=== PATIENT | female | born 1950 | race Caucasian/White ===

== ENCOUNTER 2016-05-22 11:25 | Day surgery (SDC) | payer MEDICARE, OTHER ==
[~2016-05-22 11:25] MED LIST: 0.9% Sodium Chloride 1,000 ML IV PRN; ATEN25TA7 PO; BENA40TA60 PO; GABA-502 PO; IBUP-1827 PO; LEVO112T4 PO; LEVO125T6 PO; NIFE60TA62 PO; OMEP20TA86 PO; PROP10TA8 PO; Sodium Chloride LOK Flush 10 mL Syringe IV PRN; fentaNYL-PF 50 mCg/mL 2 mL Inj IVPUSH PRN
[2016-05-22 12:24] VITALS: BP 157/94; PULSE 89; RESP 16; O2SAT 99
--- NOTE | 2016-05-22 14:00 | PCM.ENDEGD ---
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 Scope introduced esophagus. Esophagus showed normal shiny whitish mucosa consistent with squamous cell component. Z line was intact at 36 cm from the incisors. Right above it, there was a Schatzki's ring. Lumen site was about 12 mm. On the Schatzki's ring, there was islands of salmon-colored mucosa. Biopsies are obtained four quadrant at the sites of the salmon-colored mucosa and the Z line. So we obtained total of 6 biopsies. 4 at the site of Tanner's and 2 at the Z line. The length of the Tanner was more no more than 2 cm. Because we took biopsies , we did not dilate. Scope further advanced to the stomach. Stomach showed normal shiny mucosa with normal appearing rugae folds without any ulcer mass erosion. Cardia fundus body antrum pylorus were all visualized. Retroflexion was done. Stomach was easily inflated and deflatable using air. Scope further events to the distal duodenum. Duodenum revealed normal villous structures with normal appearing folds without any mass ulcer erosion. Impression Schatzki's ring lumen size about 12-13 mm Tanner's esophagus on the Schatzki's ring biopsy obtained from and 2 biopsies obtained at the junction. 4 cm hiatus hernia Recommendation Await biopsy Continue PPI Follow up in GI clinic to talk about esophageal dilation Presedation Assessment Risks and Benefits Informed consent was obtained from the patient after all risks and benefits including but not limited to drug reaction, infection, pain, bleeding, perforation, as well as alternatives were discussed. Patient monitoring Continuous pulse oximetry, cardiac monitoring, blood pressure monitoring, IV access, and oxygen at 2L per nasal cannula. Periprocedural Fentanyl: Fentanyl 125mcg Incrementally Midazolam: Midazolam 7mg Incrementally Complications There were no periprocedural complications identified. Post Procedure Plan Post Procedure Recommendations 1. Restrict activities today. 2. Resume normal activities in the morning. 3. Resume medications. 4. GERD behavioral modification: - Avoid fatty, acidic, spicy, large meals - Do not lie down after meals - Do not eat or drink anything for at least 2 1/2 hours before going to bed at night - Discontinue tobacco and alcohol - Decrease or avoid caffeine - Avoid chocolate and mints - Decrease weight - Avoid aspirin and non steroidal anti-inflammatory agents (NSAID) such as Aleve, Advil, Mobic, Naproxen, Ibuprofen, etc 5. Add proton pump inhibitor. Take 30 minutes before 1st meal of the day. 6. Patient informed of normal post procedure side effects as bloating, drowsiness, blood streaking in the stool 7. If gastric biopsy reveal H.pylori, continue with appropriate treatment 8. If small bowel biopsy reveals celiac, continue with appropriate treatment 9. Please don't hesitate to call me with any questions Matthew Rubio MD May 22, 2016 14:00
[2016-05-22 14:23] VITALS: BP 123/82; PULSE 86; RESP 16; O2SAT 97
--- NOTE | 2016-05-22 14:23 | PCM.ENDCOL ---
Colonoscopy Date of Service: May 22, 2016 Physician Matthew Rubio MD Pre Procedure Diagnosis: Screening Post Procedure Dx & Findings: Polyp hemorrhoids diverticuli Procedure Colonoscopy PROCEDURE IN DETAIL: Prep adequate Withdrawal time 11 minutes After unremarkable rectal examination the Olympus video colonoscope was inserted patient's anal canal and was advanced to cecum. Landmarks were identified including the ileocecal valve and appendiceal orifice. Scope was withdrawn systematically. Visualized colonic mucosa showed healthy shiny mucosa with normal healthy-appearing vasculature. Patient had 2 polyps in the descending colon and the sigmoid colon. There were about 2-3 mm in size which were all resected completely using cold snare. In the colon from the sigmoid colon into the ascending colon, medium to large diverticuli noted mostly in the sigmoid colon but scattered all the way up to the ascending colon. In the rectum retroflexion was done which showed hemorrhoids. Anal canal was inspected carefully on the way out and hemorrhoids noted. Impression Polyps 2 status post complete removal Diverticuli scattered throughout the colon Hemorrhoids Recommendation Repeat colonoscopy 5 years Diverticular diet Presedation Assessment Risks and Benefits Informed consent was obtained from the patient after all risks and benefits including but not limited to drug reaction, infection, pain, bleeding, perforation, as well as alternatives were discussed. Patient monitoring Continuous pulse oximetry, cardiac monitoring, blood pressure monitoring, IV access, and oxygen at 2L per nasal cannula. Complications There were no periprocedural complications identified. Post Procedure Plan Post Procedure Recommendations 1. Restrict activities today. 2. Resume normal activities in the morning. 3. Resume medications. 4. Patient informed of normal post procedure side effects as bloating, drowsiness, blood streaking in the stool. 5. average risk CRCS. If colon polyps come back as: -Hyperplastic- can repeat colonoscopy in 10 years -Tubular adenoma- repeat colonoscopy in 5 years -Tubulovillous/villous adenoma- repeat colonoscopy in 3 years -If any dysplasia- return to clinic as soon as possible 6. Please don't hesitate to call me with any questions. Matthew Rubio MD May 22, 2016 14:23
[2016-05-22 14:34] VITALS: BP 135/81; PULSE 82; RESP 16; O2SAT 98
[2016-05-22 14:43] VITALS: BP 134/80; PULSE 90; RESP 16; O2SAT 95
--- NOTE | 2016-05-25 15:24 | PATH ---
SURGICAL PATHOLOGY Attending Physician:Matthew Rubio M.D. CASE STATUS: Signed Out PATIENT NAME: ANA BROWN PID: [id number] : 1950 DATE COLLECTED:05/22/2016 00:00 SPECIMEN: 1: Esophagus, Biopsy 2: Colon, Biopsy 3: Colon, Biopsy CLINICAL HISTORY: 1. GASTROESOPHAGEAL JUNCTION BX 2. DESCENDING COLON POLYP 3. SIGMOID COLON POLYP FINAL DIAGNOSIS: 1.GASTROESOPHAGEAL JUNCTION BIOPSY: SQUAMOCOLUMNAR MUCOSA WITH INTESTINAL METAPLASIA CONSISTENT WITH PORTER' S ESOPHAGUS, 2 OF 4 FRAGMENTS. Negative for dysplasia and malignancy. 2.DESCENDING COLON POLYP: BENIGN COLONIC MUCOSA WITH NO DIAGNOSTIC ALTERATIONS, CONSISTENT WITH POLYPOID REDUNDANCY. Negative for dysplasia and malignancy. Multiple microscopic levels examined. 3.SIGMOID COLON POLYP: TUBULAR ADENOMA. ICD10 CODE K22.70 D12.5 GROSS DESCRIPTION: The specimen is received in three formalin filled containers labeled with the patient's name. 1). The specimen is sublabeled "gastroesophageal junction" and consists of 4 portions of tissue which aggregate to 0.4 x 0.4 x 0.3 CM. The specimen is entirely submitted in cassette 1A. 2). The specimen is sublabeled "descending colon polyp" and consists of a 0.3 x 0.3 x 0.2 CM portion of tissue which is entirely submitted in cassette 2A. 3). The specimen is sublabeled "sigmoid colon polyp" and consists of a 0.3 x 0.2 x 0.2 CM portion of tissue which is entirely submitted in cassette 3A. 05/23/2016 DAC MICRO DESCRIPTION: See diagnosis. ICD-9 CODES: CPT CODES: 1: 62701 2: 82957 3: 84669 Electronically Signed Out Emma Staton MD [facility], [place] [address] Technical component performed at [facility], [address] [place] [address] [address], [place], [address]
== END 2016-05-22 23:59 | disposition home or self-care (01) ==
LOC: END 11:25
PROVIDERS: ATTEND Internal Medicine
DX: Z12.11 Encounter for screening for malignant neoplasm of colon (principal); D12.5 Benign neoplasm of sigmoid colon; K63.5 Polyp of colon; K57.30 Diverticulosis of large intestine without perforation or abscess without bleeding; K64.8 Other hemorrhoids; K22.70 Barrett's esophagus without dysplasia; K22.2 Esophageal obstruction; K44.9 Diaphragmatic hernia without obstruction or gangrene; K21.9 Gastro-esophageal reflux disease without esophagitis; Z79.899 Other long term (current) drug therapy
CPT/HCPCS: 43239; 45385; 99153; G0500; J2250; J3010; J7030